=== PATIENT | female | born 1985 | race Caucasian/White ===

== ENCOUNTER 2016-05-30 11:08 | Inpatient (IN) | payer MEDICAID ==
[2016-05-30] VITALS (39 sets, daily range): BP systolic 119–145; BP diastolic 67–104; PULSE 69–101; RESP 16–18; TEMP 98.1–98.4; O2SAT 94–100
[~2016-05-30 11:08] MED LIST: PREN1PAK2 PO
--- NOTE | 2016-05-30 11:50 | PD ---
HPI Chief Complaint Sent from [facility] because of blurry vision Date Seen: May 30, 2016 Time Seen: 11:43 (Sotero Mederos MD R2) Travel History International Travel<30 Days: No Contact w/Intl Traveler<30Days: No Known Affected Area: No (Sotero Mederos MD R2) History of Present Illness HPI 30 G for P1 at 38.4; KRISTI 06/09. care with [facility]. GBS negative. Patient presents after visiting her intake clinician's office this morning. At that appointment, she reportedly had blood pressures of 134/98 and 128/102. She also complained of visual disturbances for 2 weeks. The patient was told to come to [facility]. For the past 2 weeks patient has had blurry vision and "seeing gold specks." However, this usually occurs when she is active and goes away when she rests. Denies headache. No right upper quadrant pain. No vaginal bleeding. No fluid loss. Good movement. Para: 1 : 4 (Sotero Mederos MD R2) History Past Medical History Medical History: Denies Significant Hx (Sotero Mederos MD R2) Obstetric History Obstetric History 2 spontaneous abortions at 8 weeks and 11 weeks. (Sotero Mederos MD R2) Past Surgical History Surgical History: No Previous Surgery (Sotero Mederos MD) Family History Family History: Negative (Sotero Mederos MD R2) Social History Alcohol Use: No Tobacco Use: No Substance Abuse: No (Sotero Mederos MD R2) Allergies-Medications (Allergen,Severity, Reaction): Coded Allergies: Penicillin (Verified Allergy, Unknown, RASH, HIVES, 05/30/16) Home Meds Active Scripts W/O Vit A W/ Fe Carbo Pack (Citranatal Dha Pack)27-1 & 250 Mg Pack1 Ea PO DAILY #6 BLISTER Ref 11 30 day supply. Prov:Sayra Skinner 02/25/16 Review of Systems General / Constitutional: No: Fever Eyes: Blurred Vision, Visual changes HENT: No: Headaches, Vertigo, Dental Difficulties, Lightheadedness (Sotero Mederos MD R2) Physical Exam Narrative GENERAL: Well-nourished, well-developed patient. SKIN: Warm and dry. HEAD: Normocephalic and atraumatic. EYES: No scleral icterus. No injection or drainage. ENT: No nasal drainage noted. Mucous membranes pink. Airway patent. NECK: Supple, trachea midline. No JVD. CARDIOVASCULAR: Regular rate and rhythm without murmurs, gallops, or rubs. RESPIRATORY: Breath sounds equal bilaterally. No accessory muscle use. ABDOMEN/GI: Abdomen soft, non-tender, bowel sounds present, no rebound, no guarding FHT's: Category: 1 Baseline: 130 Reactive: yes with accelerations Variability: Moderate Decels: None EXTREMITIES: No cyanosis or edema. BACK: Nontender without obvious deformity. No CVA tenderness. NEUROLOGICAL: Awake and alert. Motor and sensory grossly within normal limits. Five out of 5 muscle strength in all muscle groups. Normal speech. (Sotero Mederos MD R2) Data Data Vital Signs Reviewed: Yes Orders Vital Signs (Adult) .ON ADMISSION (05/30/16 11:42) Urinalysis - C+S If Indicated (05/30/16 11:42) ^ Non Stress Test (05/30/16 11:42) ^ Hydration (05/30/16 11:42) (Sotero Mederos MD R2) Labs Laboratory Tests Test 05/30/16 05/30/16 11:20 12:10 Urine Color COLORLESS Urine Turbidity CLEAR Urine pH 7.0 Urine Specific [place] 1.002 Urine Protein NEG mg/dL Urine Glucose (UA) NEG mg/dL Urine Ketones NEG mg/dL Urine Occult Blood NEG Urine Nitrite NEG Urine Bilirubin NEG Urine Urobilinogen LESS THAN 2.0 MG/DL Urine Leukocyte Esterase NEG Urine WBC 1 /hpf Urine Squamous Epithelial <1 /hpf Cells Microscopic Urinalysis Comment CULT NOT INDICATED White Blood Count 8.5 TH/MM3 Red Blood Count 3.69 MIL/MM3 Hemoglobin 11.6 GM/DL Hematocrit 34.6 % Mean Corpuscular Volume 93.7 FL Mean Corpuscular Hemoglobin 31.5 PG Mean Corpuscular Hemoglobin 33.6 % Concent Red Cell Distribution Width 14.2 % Platelet Count 182 TH/MM3 Mean Platelet Volume 10.2 FL Sodium Level 137 MEQ/L Potassium Level 3.4 MEQ/L Chloride Level 103 MEQ/L Carbon Dioxide Level 25.2 MEQ/L Anion Gap 9 MEQ/L Blood Urea Nitrogen 4 MG/DL Creatinine 0.53 MG/DL Estimat Glomerular Filtration 135 ML/MIN Rate Random Glucose 88 MG/DL Uric Acid 3.9 MG/DL Calcium Level 8.4 MG/DL Total Bilirubin 0.3 MG/DL Aspartate Amino Transf 15 U/L (AST/SGOT) Alanine Aminotransferase 15 U/L (ALT/SGPT) Alkaline Phosphatase 188 U/L Total Protein 6.5 GM/DL Albumin 2.6 GM/DL (Ellie Carcamo MD) MDM Medical Record Reviewed: Yes Interpretation(s) 30 at 38.4. Presents with elevated blood pressures and blurry vision 2 weeks. 1. IUP Category 1 tracing Continue to monitor 2. Gestational hypertension versus preeclampsia Blood pressures here are 146/102, 136/98. Continue blood pressure checks every 15 minutes. Urinalysis, CBC, CMP, uric acid pending. If blood pressures continue to be elevated, or if labs are concerning, patient may be induced. (Sotero Mederos MD R2) Plan Blood pressures remain elevated in patient at [id number] by 11 week ultrasound agreeing with LMP Cervix on exam /high Will admit for induction of labor/cervical ripening Attending Attestation Patient seen and examined Admission for cervical ripening and delivery (Ellie Carcamo MD) Diagnosis Diagnosis: Primary Impression: Gestational [-induced] hypertension without significant proteinuria, third trimester Additional Impression: 38 weeks gestation of Sotero Mederos MD R2 May 30, 2016 11:50 Ellie Carcamo MD May 30, 2016 13:12
[2016-05-30 12:12] LABS: BLOOD, URINE NEG (NEG); GLUCOSE,URINE NEG (NEG); KETONE, URINE NEG (NEG); NITRITE,URINE NEG (NEG); SQUAMOUS EPITHELIAL CELL URINE <1 /hpf (0-5); URINE COLOR COLORLESS (YELLW/STRAW)
[2016-05-30 12:14] LABS: COMMENT (UR) CULT NOT INDICATED; CULTURE IF INDICATED CULT NOT INDICATED
[2016-05-30 12:24] LABS: HEMATOCRIT 34.6 % (35.0-46.0); MEAN CELL VOLUME 93.7 FL (80.0-100.0); MEAN CORPUSCULAR HEMOGLOBIN 31.5 PG (27.0-34.0); MEAN CORPUSCULAR HGB CONC 33.6 % (32.0-36.0); PLATELET COUNT 182 TH/MM3 (150-450); RED BLOOD COUNT 3.69 MIL/MM3 (4.00-5.30); RED CELL DISTRIBUTION WIDTH 14.2 % (11.6-17.2); WHITE BLOOD COUNT 8.5 TH/MM3 (4.0-11.0)
[2016-05-30 12:39] LABS: ANION GAP 9 MEQ/L (5-15); AST (GOT) 15 U/L (15-37); BICARBONATE 25.2 MEQ/L (21.0-32.0); BLOOD UREA NITROGEN 4 MG/DL (7-18); CHLORIDE 103 MEQ/L (98-107); GLOMERULAR FILTRATION RATE 135 ML/MIN (>89); POTASSIUM 3.4 MEQ/L (3.5-5.1); SODIUM (NA) 137 MEQ/L (136-145); URIC ACID 3.9 MG/DL (2.6-6.0)
[2016-05-30 12:43] LABS: ALKALINE PHOSPHATASE 188 U/L (45-117); ALT (GPT) 15 U/L (10-53); TOTAL BILIRUBIN ADULT 0.3 MG/DL (0.2-1.0)
[2016-05-30] MEDS ORDERED: LACTATED RINGER'S 1000 ML INJ 1,000 ML IV PRN (12:57)
[2016-05-30] MEDS ORDERED: LACTATED RINGER'S 1000 ML INJ 1,000 ML IV SCH (12:57)
[2016-05-30] MEDS ORDERED: OXYTOCIN 30 UNITS-500ML PREMIX 500 ML IV SCH (13:00)
[2016-05-30] MEDS ORDERED: SODIUM CHLORIDE 0.9% FLUSH 5 ML FLUSH IV FLUSH PRN (13:00)
[2016-05-30] MEDS ORDERED: MISOPROSTOL 100 MCG TAB VAGINAL ONE (13:00)
[2016-05-30] MEDS ORDERED: LIDOCAINE HCL 1% 50 ML VIAL I-DERMAL PRN (13:00)
[2016-05-30] MEDS ORDERED: LIDOCAINE HCL 1% 50 ML VIAL INFIL PRN (13:00)
[2016-05-30] MEDS ORDERED: OXYTOCIN 30 UNITS-500ML PREMIX 500 ML IV ONE ×2 (13:00→19:45)
[2016-05-30] MEDS ORDERED: SODIUM CHLORID 0.9% 500 ML INJ 500 ML IV PRN (13:00)
[2016-05-30] MEDS ORDERED: CITRIC ACID-SODIUM CITRATE LIQ 30 ML UDC PO SCH (13:00)
[2016-05-30] MEDS ORDERED: MINERAL OIL 10 ML VIAL TOPICAL PRN (13:00)
--- NOTE | 2016-05-30 13:14 | HHI.HP ---
History & Physical H&P HPI Chief Complaint Sent from [facility] because of blurry vision Date Seen: May 30, 2016 Time Seen: 11:43 (Sotero Mederos MD R2) Travel History International Travel<30 Days: No Contact w/Intl Traveler<30Days: No Known Affected Area: No (Sotero Mederos MD R2) History of Present Illness HPI 30 G for P1 at 38.4; KRISTI 06/09. care with [facility]. GBS negative. Patient presents after visiting her salvage worker's office this morning. At that appointment, she reportedly had blood pressures of 134/98 and 128/102. She also complained of visual disturbances for 2 weeks. The patient was told to come to [facility]. For the past 2 weeks patient has had blurry vision and "seeing gold specks." However, this usually occurs when she is active and goes away when she rests. Denies headache. No right upper quadrant pain. No vaginal bleeding. No fluid loss. Good movement. Para: 1 : 4 (Sotero Mederos MD R2) History (Limited) History Past Medical History Medical History: Denies Significant Hx (Sotero Mederos MD R2) Obstetric History Obstetric History 2 spontaneous abortions at 8 weeks and 11 weeks. (Sotero Mederos MD R2) Past Surgical History Surgical History: No Previous Surgery (Sotero Mederos MD) Family History Family History: Negative (Sotero Meedros MD) Social History Alcohol Use: No Tobacco Use: No Substance Abuse: No (Sotero Mederos MD R2) Allergies-Medications Allergies-Medications (Allergen,Severity, Reaction): Coded Allergies: Penicillin (Verified Allergy, Unknown, RASH, HIVES, 05/30/16) Home Meds Active Scripts W/O Vit A W/ Fe Carbo Pack (Citranatal Dha Pack)27-1 & 250 Mg Pack1 Ea PO DAILY #6 BLISTER Ref 11 30 day supply. Prov:Sayra Skinner 02/25/16 ROS Review of Systems General / Constitutional: No: Fever Eyes: Blurred Vision, Visual changes HENT: No: Headaches, Vertigo, Dental Difficulties, Lightheadedness (Sotero Mederos MD R2) Physical Exam Physical Exam Narrative GENERAL: Well-nourished, well-developed patient. SKIN: Warm and dry. HEAD: Normocephalic and atraumatic. EYES: No scleral icterus. No injection or drainage. ENT: No nasal drainage noted. Mucous membranes pink. Airway patent. NECK: Supple, trachea midline. No JVD. CARDIOVASCULAR: Regular rate and rhythm without murmurs, gallops, or rubs. RESPIRATORY: Breath sounds equal bilaterally. No accessory muscle use. ABDOMEN/GI: Abdomen soft, non-tender, bowel sounds present, no rebound, no guarding FHT's: Category: 1 Baseline: 130 Reactive: yes with accelerations Variability: Moderate Decels: None EXTREMITIES: No cyanosis or edema. BACK: Nontender without obvious deformity. No CVA tenderness. NEUROLOGICAL: Awake and alert. Motor and sensory grossly within normal limits. Five out of 5 muscle strength in all muscle groups. Normal speech. (Sotero Mederos MD R2) Data Data Data Vital Signs Reviewed: Yes Orders Vital Signs (Adult) .ON ADMISSION (05/30/16 11:42) Urinalysis - C+S If Indicated (05/30/16 11:42) ^ Non Stress Test (05/30/16 11:42) ^ Hydration (05/30/16 11:42) (Sotero Mederos MD R2) Labs Laboratory Tests Test 05/30/16 05/30/16 11:20 12:10 Urine Color COLORLESS Urine Turbidity CLEAR Urine pH 7.0 Urine Specific [place] 1.002 Urine Protein NEG mg/dL Urine Glucose (UA) NEG mg/dL Urine Ketones NEG mg/dL Urine Occult Blood NEG Urine Nitrite NEG Urine Bilirubin NEG Urine Urobilinogen LESS THAN 2.0 MG/DL Urine Leukocyte Esterase NEG Urine WBC 1 /hpf Urine Squamous Epithelial <1 /hpf Cells Microscopic Urinalysis Comment CULT NOT INDICATED White Blood Count 8.5 TH/MM3 Red Blood Count 3.69 MIL/MM3 Hemoglobin 11.6 GM/DL Hematocrit 34.6 % Mean Corpuscular Volume 93.7 FL Mean Corpuscular Hemoglobin 31.5 PG Mean Corpuscular Hemoglobin 33.6 % Concent Red Cell Distribution Width 14.2 % Platelet Count 182 TH/MM3 Mean Platelet Volume 10.2 FL Sodium Level 137 MEQ/L Potassium Level 3.4 MEQ/L Chloride Level 103 MEQ/L Carbon Dioxide Level 25.2 MEQ/L Anion Gap 9 MEQ/L Blood Urea Nitrogen 4 MG/DL Creatinine 0.53 MG/DL Estimat Glomerular Filtration 135 ML/MIN Rate Random Glucose 88 MG/DL Uric Acid 3.9 MG/DL Calcium Level 8.4 MG/DL Total Bilirubin 0.3 MG/DL Aspartate Amino Transf 15 U/L (AST/SGOT) Alanine Aminotransferase 15 U/L (ALT/SGPT) Alkaline Phosphatase 188 U/L Total Protein 6.5 GM/DL Albumin 2.6 GM/DL (Ellie Carcamo MD) MDM MDM Medical Record Reviewed: Yes Interpretation(s) 30 at 38.4. Presents with elevated blood pressures and blurry vision 2 weeks. 1. IUP Category 1 tracing Continue to monitor 2. Gestational hypertension versus preeclampsia Blood pressures here are 146/102, 136/98. Continue blood pressure checks every 15 minutes. Urinalysis, CBC, CMP, uric acid pending. If blood pressures continue to be elevated, or if labs are concerning, patient may be induced. (Sotero Mederos MD R2) Plan Blood pressures remain elevated in patient at 45h4mdht by 11 week ultrasound agreeing with LMP Cervix on exam /high Will admit for induction of labor/cervical ripening Attending Attestation Patient seen and examined Admission for cervical ripening and delivery (Ellie Carcamo MD) Diagnosis Diagnosis: Primary Impression: Gestational [-induced] hypertension without significant proteinuria, third trimester Additional Impression: 38 weeks gestation of Ellie Carcamo MD May 30, 2016 13:14
[2016-05-30] MEDS ORDERED: SODIUM CHLOR 0.9% 1000 ML INJ 1,000 ML IV PRN (13:17)
[2016-05-30 14:11] LABS: BANDS 6 % (0-6); EOSINOPHILS 1 % (0-4); NEUTROPHIL # MANUAL DIFF 6.6 TH/MM3 (1.8-7.7); PLATELET ESTIMATE SMEAR NORMAL (NORMAL); PLATELET MORPHOLOGY NORMAL (NORMAL); POLYS (SEG NEUTROPHILS) 72 % (16-70); SCAN/DIFF FINAL DIFF MANUAL; WBC DIFF SAMPLE 100
--- NOTE | 2016-05-30 14:54 | PD.LABORPN ---
Subjective Subjective Patient is a at 38-39 weeks gestation who is admitted for induction of labor due to gestational hypertension without proteinuria. Cytotec 50 g was placed intravaginally. Objective Vital Signs Vital Signs Date Time Temp Pulse Resp B/P Pulse Ox O2 Delivery O2 Flow Rate FiO2 05/30/16 13:46 80 145/88 05/30/16 13:40 98.2 05/30/16 13:39 18 05/30/16 12:41 100 18 136/100 05/30/16 12:00 93 129/91 05/30/16 11:45 18 05/30/16 11:42 95 133/98 Objective Pelvic Exam: Cervix: Closed Dilatation: Close Effacement: 50% Station: -3 Presentation: Vertex Membranes: intact or ruptured Uterine Contractions: - FHT's: Category: 1 Baseline: 140 Reactive: Moderate Variability: Moderate Decels: Absent Ellie Carcamo MD May 30, 2016 14:54
[2016-05-30] MEDS ORDERED: TERBUTALINE INJ 1 MG/ML AMP ONE (16:30)
--- NOTE | 2016-05-30 16:35 | PD.LABORPN ---
Subjective Subjective Called to see patient due to heart rate deceleration to 120 for 30 seconds. Patient was given fentanyl with a drop in blood pressure to 118/62. 500 cc IV bolus will be given an 0.25 subcutaneous terbutaline due to hyperstimulation. Otherwise category 1 heart rate tracing. Objective Vital Signs Vital Signs Date Time Temp Pulse Resp B/P Pulse Ox O2 Delivery O2 Flow Rate FiO2 05/30/16 16:06 69 119/67 05/30/16 16:05 76 128/104 05/30/16 15:22 79 132/94 05/30/16 15:21 18 05/30/16 15:20 78 05/30/16 15:15 89 05/30/16 15:10 88 05/30/16 15:05 86 05/30/16 15:00 90 05/30/16 14:55 92 05/30/16 14:50 93 05/30/16 14:45 93 05/30/16 14:40 91 05/30/16 14:35 92 05/30/16 14:30 92 05/30/16 13:46 80 145/88 05/30/16 13:40 98.2 05/30/16 13:39 18 05/30/16 12:41 100 18 136/100 05/30/16 12:00 93 129/91 05/30/16 11:45 18 05/30/16 11:42 95 133/98 Objective Pelvic Exam: Cervix: [-] Dilatation: [-] Effacement: [-] Station: [-] Presentation: [-] Membranes: [intact or ruptured] Uterine Contractions: [-] FHT's: Category: [-] Baseline: [-] Reactive: [-] Variability: [-] Decels: [-] Ellie Carcamo MD May 30, 2016 16:35
--- NOTE | 2016-05-30 18:30 | PD.LABORPN ---
Subjective Subjective Patient is a 38-39 weeks gestation here for induction of labor because of gestational hypertension. Patient had 50 g of Cytotec placed intravaginally. Cervical exam is 3 cm with 50% effacement and -2 station. heart rate is a category 1 with a baseline of 120 moderate variability. Assisted rupture of membranes with copious clear fluid was obtained scalp electrode was placed for better heart rate tracing. Blood pressures have been normal. We will start Pitocin augmentation as necessary. Objective Vital Signs Vital Signs Date Time Temp Pulse Resp B/P Pulse Ox O2 Delivery O2 Flow Rate FiO2 05/30/16 17:09 101 129/84 05/30/16 17:05 98 05/30/16 17:00 96 05/30/16 17:00 98.1 05/30/16 16:06 69 119/67 05/30/16 16:05 76 128/104 05/30/16 15:22 79 132/94 05/30/16 15:21 18 05/30/16 15:20 78 05/30/16 15:15 89 05/30/16 15:10 88 05/30/16 15:05 86 05/30/16 15:00 90 05/30/16 14:55 92 05/30/16 14:50 93 05/30/16 14:45 93 05/30/16 14:40 91 05/30/16 14:35 92 05/30/16 14:30 92 05/30/16 13:46 80 145/88 05/30/16 13:40 98.2 05/30/16 13:39 18 05/30/16 12:41 100 18 136/100 05/30/16 12:00 93 129/91 05/30/16 11:45 18 05/30/16 11:42 95 133/98 Objective Pelvic Exam: Cervix: [-] Dilatation: [-] Effacement: [-] Station: [-] Presentation: [-] Membranes: [intact or ruptured] Uterine Contractions: [-] FHT's: Category: [-] Baseline: [-] Reactive: [-] Variability: [-] Decels: [-] Ellie Carcamo MD May 30, 2016 18:29
[2016-05-30] MEDS ORDERED: fentaNYL 2MCG-BUPIV 0.125% INJ 100 ML ONE (18:41)
--- NOTE | 2016-05-30 18:55 | PD.LABORPN ---
Subjective Subjective Category 2 tracing persisting despite maternal position changes and oxygen. Patient is 3cm and tracing has persisted for the past 15 minutes. Fetus is intolerant to labor with patient remote from delivery. Will progress to C- section Objective Vital Signs Vital Signs Date Time Temp Pulse Resp B/P Pulse Ox O2 Delivery O2 Flow Rate FiO2 05/30/16 18:25 97 05/30/16 18:20 92 05/30/16 18:15 101 05/30/16 18:00 96 129/85 05/30/16 17:09 101 129/84 05/30/16 17:05 98 05/30/16 17:00 96 05/30/16 17:00 98.1 05/30/16 16:06 69 119/67 05/30/16 16:05 76 128/104 05/30/16 15:22 79 132/94 05/30/16 15:21 18 05/30/16 15:20 78 05/30/16 15:15 89 05/30/16 15:10 88 05/30/16 15:05 86 05/30/16 15:00 90 05/30/16 14:55 92 05/30/16 14:50 93 05/30/16 14:45 93 05/30/16 14:40 91 05/30/16 14:35 92 05/30/16 14:30 92 05/30/16 13:46 80 145/88 05/30/16 13:40 98.2 05/30/16 13:39 18 05/30/16 12:41 100 18 136/100 05/30/16 12:00 93 129/91 05/30/16 11:45 18 05/30/16 11:42 95 133/98 Objective Pelvic Exam: Cervix: [-] Dilatation: [-] Effacement: [-] Station: [-] Presentation: [-] Membranes: [intact or ruptured] Uterine Contractions: [-] FHT's: Category: [-] Baseline: [-] Reactive: [-] Variability: [-] Decels: [-] Ellie Carcamo MD May 30, 2016 18:55
[2016-05-30] MEDS ORDERED: OXYTOCIN 10 UNIT/ML AMP ONE (18:59)
[2016-05-30] MEDS ORDERED: ceFAZolin 2 GM PREMIX 50 ML IV SCH (19:00)
[2016-05-30] MEDS ORDERED: ceFAZolin INJ 1,000 MG VIAL ONE (19:00)
[2016-05-30] MEDS ORDERED: ONDANSETRON HCL 4 MG/2 ML VIAL IV PUSH ONE (19:30)
[2016-05-30] MEDS ORDERED: LACTATED RINGER'S 1000 ML INJ 1,000 ML IV ONE (19:30)
[2016-05-30] MEDS ORDERED: PROPOFOL 200 MG/20 ML AMP IV ONE (19:30)
[2016-05-30] MEDS ORDERED: MORPHINE SULFATE PF 5 MG/10 ML VIAL ONE (19:44)
[2016-05-30] MEDS ORDERED: ONDANSETRON HCL 4 MG/2 ML VIAL IV PUSH PRN (19:45)
[2016-05-30] MEDS ORDERED: SODIUM CHLORIDE 0.9% FLUSH 5 ML FLUSH IV PRN (19:45)
[2016-05-30] MEDS ORDERED: SIMETHICONE 80 MG CHEWABLE TAB PO PRN (19:45)
--- NOTE | 2016-05-30 19:46 | PD.OB.DELI ---
Procedure Note Section Procedure Pre Op Diagnosis: (1) Gestational [-induced] hypertension without significant proteinuria , third trimester Post Op Diagnosis: Performed by Ellie Carcamo Procedure: Primary Low Transverse Sec Indication for delivery: Nonreassuring heart tracing Informed consent obtained: For anesthesia, For procedure Confirmed correct: Patient, Time-out taken Anesthesia: Spinal Medication prior to procedure: As documented in eMAR Urinary catheter: Inserted using sterile technique Sterile preparation: Duraprep, In usual fashion Position: Supine with wedge to left side Operative Features Skin Incision: Pfannenstiel Uterine Incision: Low transverse w/knife / blunt ext Membranes Ruptured: Previously Presentation: Occiput anterior Time of : 19:12 Delivery of infant: Umbilical cord (Very short cord approx 12cm) Infant: Female One Minute : 9 Five Minute : 9 Weight: 2910gm Status of : Viable Placenta delivered: Intact Medications: Antibiotics Estimated blood loss: <500cc Procedure tolerated: Well Maternal Condition: Stable Condition: Stable Ellie Carcaom MD May 30, 2016 19:46
[2016-05-30] MEDS ORDERED: MEPERIDINE HCL 25 MG/ML VIAL ONE (19:58)
[2016-05-30] MEDS ORDERED: SODIUM CHLORIDE 0.9% FLUSH 5 ML FLUSH IV FLUSH SCH (21:00)
[2016-05-30] MEDS ORDERED: EPIDURAL-NALOXONE HCL 0.4 MG/ML AMP IV PRN (23:45)
[2016-05-30] MEDS ORDERED: KETOROLAC TROMETHAMINE 30 MG/ML (IVP) VIAL IV PUSH ONE (23:45)
[2016-05-30] MEDS ORDERED: EPIDURAL-NO SYSTEMIC NARCOTICS XX PRN (23:45)
[2016-05-30] MEDS ORDERED: EPIDURAL-DIPHENHYDRAMINE HCL 50 MG CAP PO PRN (23:45)
[2016-05-30] MEDS ORDERED: EPIDURAL-DIPHENHYDRAMINE HCL 50 MG/ML VIAL IV PUSH PRN (23:45)
[2016-05-30] MEDS ORDERED: EPIDURAL-DO NOT ADMINISTER ANTICOAGULANTS XX PRN (23:45)
[2016-05-30] MEDS: LACTATED RINGER'S 1000 ML INJ 1,000 ML IV SCH (23:51)
[2016-05-31] MEDS ORDERED: ACETAMINOPHEN 1000 MG/100 ML VIAL IV PRN (01:00)
[2016-05-31 03:30] VITALS: BP 128/72; PULSE 78; RESP 16; TEMP 98.3
[2016-05-31 04:36] LABS: AUTOMATED NEUTROPHIL # 7.7 TH/MM3 (1.8-7.7); BASOPHIL % 0.3 % (0.0-2.0); EOSINOPHIL # 0.2 TH/MM3 (0-0.4); EOSINOPHIL % 1.6 % (0.0-4.0); HEMATOCRIT 27.2 % (35.0-46.0); HEMO FLAGS DIFF FINAL; LYMPH % 23.6 % (9.0-44.0); LYMPHOCYTE # 2.7 TH/MM3 (1.0-4.8); MEAN CELL VOLUME 94.5 FL (80.0-100.0); MEAN CORPUSCULAR HEMOGLOBIN 32.1 PG (27.0-34.0); MONO % 6.1 % (0.0-8.0); NEUT % 68.4 % (16.0-70.0); PLATELET COUNT 152 TH/MM3 (150-450); RED BLOOD COUNT 2.87 MIL/MM3 (4.00-5.30); RED CELL DISTRIBUTION WIDTH 13.7 % (11.6-17.2); WHITE BLOOD COUNT 11.3 TH/MM3 (4.0-11.0)
[2016-05-31] MEDS ORDERED: OXYTOCIN 30 UNITS-500ML PREMIX 500 ML IV PRN (05:45)
--- NOTE | 2016-05-31 08:12 | HHI.OB ---
Subjective Post Operative Day: 1 Remarks Patient is a 30-year-old G3 now P2 who delivered via section at 38.4 weeks gestation, secondary to -induced hypertension. Today, she is feeling well. Her pain is reported as a 5 out of 10. She received a shot of Toradol last night, reports that this helped. Her blood pressures have all been less than 140/90. She denies headaches, changes in vision, right upper quadrant pain, chest pain, or shortness of breath. Her vaginal bleeding is decreased. She still has her Morales in place. (Elie Hurley MD R2) Remarks Patient seen, care discussed with resident. BP under good control (Ellie Carcamo MD) Objective Vitals/I&O Vital Signs Date Time Temp Pulse Resp B/P Pulse Ox O2 Delivery O2 Flow Rate FiO2 05/31/16 03:30 98.3 78 16 128/72 05/30/16 23:00 98.4 05/30/16 23:00 76 18 130/76 05/30/16 21:30 78 16 132/86 05/30/16 21:30 98.1 94 05/30/16 21:15 69 16 137/80 94 05/30/16 21:00 97 05/30/16 21:00 82 16 134/96 05/30/16 20:45 72 16 133/85 100 05/30/16 20:30 75 18 124/79 100 05/30/16 20:15 70 16 125/81 100 05/30/16 20:00 84 16 126/76 100 05/30/16 19:45 78 16 142/68 100 05/30/16 19:45 98.1 05/30/16 18:30 17 05/30/16 18:25 97 05/30/16 18:20 92 05/30/16 18:15 101 05/30/16 18:00 96 129/85 05/30/16 17:09 101 129/84 05/30/16 17:05 98 05/30/16 17:00 96 05/30/16 17:00 98.1 05/30/16 16:06 69 119/67 05/30/16 16:05 76 128/104 05/30/16 15:22 79 132/94 05/30/16 15:21 18 05/30/16 15:20 78 05/30/16 15:15 89 05/30/16 15:10 88 05/30/16 15:05 86 05/30/16 15:00 90 05/30/16 14:55 92 05/30/16 14:50 93 05/30/16 14:45 93 05/30/16 14:45 18 05/30/16 14:40 91 05/30/16 14:35 92 05/30/16 14:30 92 05/30/16 13:46 80 145/88 05/30/16 13:40 98.2 05/30/16 13:39 18 05/30/16 12:41 100 18 136/100 05/30/16 12:00 93 129/91 05/30/16 11:45 18 05/30/16 11:42 95 133/98 (Elie Hurley MD R2) Result Diagram: 05/31/16 0342 05/30/16 1210 Objective Remarks GENERAL: Well-nourished, well-developed patient. CARDIOVASCULAR: Regular rate and rhythm without murmurs, gallops, or rubs. RESPIRATORY: Breath sounds equal bilaterally. No accessory muscle use. ABDOMEN/GI: Abdomen soft, non-tender, bowel sounds present. Incision: Dressing covering the incision. Fundus: Firm, non-tender at umbilicus. GENITOURINARY: Light to moderate bleeding. EXTREMITIES: No cyanosis or edema, non-tender, without signs of DVT. Medications and IVs Current Medications Medications (Trade) Dose Ordered Sig/Colleen Route Start Time Stop Time Status Last Admin (Lr 1000 ml Inj) 1,000 ml @ 100 mls/hr Q10H IV 05/31/16 00:38 05/31/16 20:37 05/30/16 23:51 (NS Flush) 2 ml BID IV 05/30/16 21:00 (NS Flush) 2 ml UNSCH PRN IV 05/30/16 19:45 (Mylicon Chew) 80 mg QID PRN PO 05/30/16 19:45 (Motrin) 600 mg Q6H PRN PO 05/30/16 19:45 (Percocet 5-325 Mg) 1 tab Q4H PRN PO 05/30/16 19:45 (Percocet 5-325 Mg) 2 tab Q4H PRN PO 05/30/16 19:45 (M-M-R Ii Inj) 0.5 ml ONCE ONCE SQ 05/31/16 16:00 05/31/16 16:01 (Boostrix Inj) 0.5 ml ONCE ONCE IM 05/31/16 16:00 05/31/16 16:01 (Zofran Inj) 4 mg Q6H PRN IV PUSH 05/30/16 19:45 Miscellaneous Information NO SYSTEMIC NARCOTICS TO BE GIVEN FO... UNSCH PRN XX 05/30/16 23:45 05/31/16 23:44 (Narcan Inj) 0.4 mg UNSCH PRN IV 05/30/16 23:45 05/31/16 23:44 (Benadryl Inj) 25 mg Q6H PRN IV PUSH 05/30/16 23:45 05/31/16 23:44 05/30/16 23:52 (Benadryl) 50 mg Q6H PRN PO 05/30/16 23:45 05/31/16 23:44 Miscellaneous Information ALL NURSING DEPARTMENTS UNSCH PRN XX 05/30/16 23:45 05/31/16 23:44 (Elie Hurley MD R2) Assessment/Plan Problem List: (1) Blood type, Rh negative (2) Gestational [-induced] hypertension without significant proteinuria , third trimester (3) S/P section Assessment and Plan 30 yo female s/p C/S at 38.4 weeks on 05/30 at 1912 hrs, POD # 1. - induced HTN - BP have been at goal. Continue with VS q 4 hours. - S/p Rhogam for RH neg status. - AFVSS - Post-op H&H 11.6 --> 9.2. - Continue routine care - Motrin and Percocet PRN pain, d/c Toradol. - Encourage OOB - Pelvic rest x 6 wks - Contraception: will discuss with OB provider at 1 week follow up. - Anticipate D/C in 1-2 days. roberto Carcamo. (Elie Hurley MD R2) Elie Hurley MD R2 May 31, 2016 08:12 Ellie Carcamo MD May 31, 2016 08:32
[2016-05-31] MEDS: SODIUM CHLORIDE 0.9% FLUSH 5 ML FLUSH IV SCH (09:00)
[2016-05-31] MEDS: IBUPROFEN 600 MG TAB PO PRN ×3 (09:43→20:22)
[2016-05-31] MEDS: oxyCODONE/ACETAMINOPHEN 5 MG/325 MG TAB PO PRN ×4 (09:43→20:23)
[2016-05-31] MEDS: LACTATED RINGER'S 1000 ML INJ 1,000 ML IV SCH (11:17)
[2016-05-31] MEDS ORDERED: DIPHTH/TETANUS/ACEL PERTUSSIS (BOOSTER) 0.5 ML VIAL/PFS IM ONE (16:00)
[2016-05-31] MEDS ORDERED: MEASLES, MUMPS, RUBELLA VACCINE 0.5 ML VIAL SQ ONE (16:00)
--- NOTE | 2016-05-31 20:15 | MP ---
cc: CHETAN BRUSH M.D. DATE OF SURGERY 05/31/16 PREOPERATIVE DIAGNOSIS 1. 38-39 week gestation 2. Gestational hypertension 3. Non reassuring heart rate tracing with a category II tracing. POSTOPERATIVE DIAGNOSIS 1. 38-39 week gestation 2. Gestational hypertension 3. Non reassuring heart rate tracing with a category II tracing. PROCEDURE Primary low transverse caesarean section without extension. ESTIMATED BLOOD LOSS Less than 500 cc ANESTHESIA Spinal. MEDICATIONS Ancef 2 grams was given intraoperatively as the urgent caesarean section was called prior to the antibiotics could be given. PATHOLOGY None. 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 COUNTS Correct times three. FINDINGS 1. Normal uterus, tubes and ovaries. 2. Very short umbilical cord measuring approximately 10-12 cm 3. Normal placenta 4. Apgars were 9 and 9. Infant was in a vertex presentation 2910 grams. PROCEDURE IN DETAIL The patient was noted to have a category II tracing and was remote from delivery and was taken back for an urgent caesarean section. Spinal was placed without difficulty and she was put into the dorsosupine position with a wedge to her left side. Pfannenstiel incision was made into the skin and taken down to the fascia. The fascia was nicked in the midline and extended bilaterally then taken off the rectus muscles. Muscles were divided in the midline. Anterior peritoneum was entered. A transverse hysterotomy incision made above the bladder flap and bluntly extended bilaterally. The 's head was delivered to the operative field. Mouth and nares were bulb suctioned. The rest of the body was delivered. It was difficult to get the infant cord clamped as the umbilical cord was very short. After cord clamping, the baby was handed off to the resuscitation team. The placenta was delivered intact spontaneously and was without abnormality and the endometrial cavity was curetted with a moist laparotomy sponge. A double layered closure with #1 Chromic in a running locking fashion was placed into the hysterotomy incision with good hemostasis after closure. Gutters were rendered free of all blood and clot material. Counts were correct. The peritoneum was closed with a running 3-0 chromic suture. The fascia was closed with a #1 PDS in the running fashion. The skin was closed with a 4-0 subcuticular Vicryl. The patient tolerated the procedure well. She was taken back to recovery in good condition. MD WYATT Hardy/ /8:08 PM /7:59 PM
[2016-06-01] MEDS: oxyCODONE/ACETAMINOPHEN 5 MG/325 MG TAB PO PRN ×6 (00:14→22:55)
[2016-06-01] MEDS: IBUPROFEN 600 MG TAB PO PRN ×3 (05:21→18:03)
--- NOTE | 2016-06-01 07:02 | HHI.OB ---
Subjective Post Operative Day: 2 Remarks Postoperative day #2. AFVSS overnight. Pain 6/10, controlled with Percocet and Motrin. Incision clean, dry, and intact, not draining. Decreased lochia. Denies dysuria. No breast tenderness. She is feeding the baby via breast. Appetite good. No nausea or vomiting. Positive flatus. No bowel movement. Ambulating well. Denies fever, chills, cough, shortness of breath, chest pain, and calf pain. Otherwise, she is doing well this morning and has no other complaints. Objective Result Diagram: 05/31/16 0342 05/30/16 1210 Objective Remarks GENERAL: Well-nourished, well-developed patient. CARDIOVASCULAR: Regular rate and rhythm without murmurs, gallops, or rubs. RESPIRATORY: Breath sounds equal bilaterally. No accessory muscle use. ABDOMEN/GI: Abdomen soft, non-tender, bowel sounds present. Incision: Dressing covering the incision. Fundus: Firm, at umbilicus. Patient complains of tenderness when palpated GENITOURINARY: Light to moderate bleeding. EXTREMITIES: No cyanosis or edema, non-tender, without signs of DVT. Medications and IVs Current Medications Medications (Trade) Dose Ordered Sig/Colleen Route Start Time Stop Time Status Last Admin (NS Flush) 2 ml BID IV 05/30/16 21:00 (NS Flush) 2 ml UNSCH PRN IV 05/30/16 19:45 (Mylicon Chew) 80 mg QID PRN PO 05/30/16 19:45 (Motrin) 600 mg Q6H PRN PO 05/30/16 19:45 06/01/16 05:21 (Percocet 5-325 Mg) 1 tab Q4H PRN PO 05/30/16 19:45 05/31/16 11:17 (Percocet 5-325 Mg) 2 tab Q4H PRN PO 05/30/16 19:45 06/01/16 05:22 (Zofran Inj) 4 mg Q6H PRN IV PUSH 05/30/16 19:45 Assessment/Plan Problem List: (1) Blood type, Rh negative (2) Gestational [-induced] hypertension without significant proteinuria , third trimester (3) S/P section Assessment and Plan 30 yo female s/p C/S at 38.4 weeks on 05/30 at 1912 hrs, POD # 2. - induced HTN - BP have been at goal. Continue with VS q4 hours. - S/p Rhogam for RH neg status. - AFVSS - Post-op H&H 11.6 --> 9.2. - Continue routine care - Motrin and Percocet PRN pain - Encourage OOB - Pelvic rest x 6 wks - Contraception: will discuss with OB provider at 1 week follow up. Considering Mirena - Anticipate D/C in one days. dw OB attending Discharge Planning Anticipate discharge home in 1 day Liset Mobley MD R1 Jun 01, 2016 07:02
[2016-06-01] MEDS: SODIUM CHLORIDE 0.9% FLUSH 5 ML FLUSH IV SCH ×2 (09:45→21:00)
[2016-06-01] MEDS: DOCUSATE SODIUM 50 MG/SENNA 8.6 MG TAB PO PRN (18:03)
[2016-06-02] MEDS: IBUPROFEN 600 MG TAB PO PRN ×2 (00:50→06:34)
[2016-06-02] MEDS: oxyCODONE/ACETAMINOPHEN 5 MG/325 MG TAB PO PRN ×3 (02:55→11:11)
[2016-06-02] MEDS: DOCUSATE SODIUM 50 MG/SENNA 8.6 MG TAB PO PRN (06:34)
[2016-06-02] MEDS ORDERED: SENN1TAB PO (06:58)
[2016-06-02] MEDS ORDERED: OXYC1TAB63 PO (06:58)
[2016-06-02] MEDS ORDERED: IBUP-232 PO (06:58)
[2016-06-02] MEDS ORDERED: SIME80CH PO (06:58)
--- NOTE | 2016-06-02 06:59 | HHI.DCPOC ---
Discharge Care Plan Diagnosis: (1) S/P section (2) Gestational [-induced] hypertension without significant proteinuria , third trimester Goals to Promote Your Health * To prevent worsening of your condition and complications * To maintain your health at the optimal level Directions to Meet Your Goals Take your medications as prescribed Follow your dietary instruction Follow activity as directed Keep your appointments as scheduled Take your immunizations and boosters as scheduled If your symptoms worsen call your PCP, if no PCP go to Urgent Care Center or Emergency Room Smoking is Dangerous to Your Health. Avoid second hand smoke Call the 24-hour hour crisis hotline for domestic abuse at Ren Hoffman MD R2 Jun 02, 2016 06:59 Laura Noriega MD Jun 02, 2016 09:17
--- NOTE | 2016-06-02 07:08 | HHI.OB ---
Subjective Remarks Postoperative day #3. Pain well controlled with Percocet and Motrin. Incision clean, dry, and intact, not draining. Decreased lochia. No dysuria. No breast tenderness. She is feeding the baby via breast. Appetite good. No nausea or vomiting. Positive flatus. No bowel movement. Ambulating well. No fever, chills , cough, shortness of breath, chest pain, and calf pain. Otherwise, she is doing well this morning and has no other complaints. She is . ( Ren Hoffman MD R2) Objective Result Diagram: 05/31/16 0342 05/30/16 1210 Objective Remarks GENERAL: Well-nourished, well-developed patient. CARDIOVASCULAR: Regular rate and rhythm without murmurs, gallops, or rubs. RESPIRATORY: Breath sounds equal bilaterally. No accessory muscle use. ABDOMEN/GI: Abdomen soft, non-tender, bowel sounds present. Incision: Dressing covering the incision. Fundus: Firm, at umbilicus. Patient complains of tenderness when palpated GENITOURINARY: Light to moderate bleeding. EXTREMITIES: No cyanosis or edema, non-tender, without signs of DVT. Medications and IVs Current Medications Medications (Trade) Dose Ordered Sig/Colleen Route Start Time Stop Time Status Last Admin (NS Flush) 2 ml BID IV 05/30/16 21:00 06/01/16 09:45 (NS Flush) 2 ml UNSCH PRN IV 05/30/16 19:45 (Mylicon Chew) 80 mg QID PRN PO 05/30/16 19:45 (Motrin) 600 mg Q6H PRN PO 05/30/16 19:45 06/02/16 06:34 (Percocet 5-325 Mg) 1 tab Q4H PRN PO 05/30/16 19:45 05/31/16 11:17 (Percocet 5-325 Mg) 2 tab Q4H PRN PO 05/30/16 19:45 06/02/16 06:35 (Zofran Inj) 4 mg Q6H PRN IV PUSH 05/30/16 19:45 (Isabella-Colace) 2 tab BID PRN PO 06/01/16 10:30 06/02/16 06:34 (Ren Hoffman MD R2) Assessment/Plan Assessment and Plan 30 yo POD # 3 after for non-reassuring strip. - induced HTN - monitor, follow up with OB within 3 days of discharge. Report any visual disturbances, epigastric pain, new onset edema. - Motrin and Percocet PRN pain - Encourage OOB - Pelvic rest x 6 wks - Contraception: will discuss with OB provider at 1 week follow up. Considering Mirena. - Encourage . - Anticipate D/C today with close follow up. (Ren Hoffman MD R2) Attending Attestation POD #3 s/p Doing well BPs stable well F/u with [facility] in 2 weeks. patient seen and examined with Dr. Aly and Dr. Hoffman (Laura Noriega MD) Ren Hoffman MD R2 Jun 02, 2016 07:08 Laura Noriega MD Jun 02, 2016 09:17
[2016-06-02] MEDS: SODIUM CHLORIDE 0.9% FLUSH 5 ML FLUSH IV SCH (09:00)
[2016-07-22] MEDS ORDERED: PARAIUD (13:41)
== END 2016-06-02 13:14 | disposition home or self-care (01) | DRG 766 ==
LOC: HOBED 11:08 → H2EA 13:08 → H1EA 21:55
PROVIDERS: ADMIT Obstetrics & Gynecology Obstetrics; ATTEND Obstetrics & Gynecology Obstetrics
PROC: 10D00Z1 Extraction of Products of Conception, Low, Open Approach (ICD-10-PCS; principal; 2016-05-31)
DX: O13.4 Gestational [pregnancy-induced] hypertension without significant proteinuria, complicating childbirth (principal); O76 Abnormality in fetal heart rate and rhythm complicating labor and delivery; Z3A.38 38 weeks gestation of pregnancy; Z37.0 Single live birth
CPT/HCPCS: 59025; 80053; 81001; 84550; 85007; 85025; 85027; 85461; 86850; 86900; 86901; 90384; J0690; J1200; J1885; J2175; J2274; J2405; J2590; J2790; J3010; J3105; J7120